=== PATIENT | male | born 1935 | race Caucasian/White ===

== ENCOUNTER → 2017-05-02 | Outpatient (CLI) | payer MEDICARE, OTHER | END | disposition home or self-care (01) | LOC: PCVCCLINIC 10:04 | PROVIDERS: ATTEND Internal Medicine | DX: I10 Essential (primary) hypertension (principal); I35.9 Nonrheumatic aortic valve disorder, unspecified; E78.5 Hyperlipidemia, unspecified; R93.1 Abnormal findings on diagnostic imaging of heart and coronary circulation; Z79.82 Long term (current) use of aspirin; Z79.899 Other long term (current) drug therapy | CPT/HCPCS: 80061; 93005; G0463 ==

== ENCOUNTER → 2018-05-02 | Outpatient (CLI) | payer MEDICARE, OTHER | END | disposition home or self-care (01) | LOC: PCVCCLINIC 13:04 | PROVIDERS: ATTEND Internal Medicine | DX: I25.10 Atherosclerotic heart disease of native coronary artery without angina pectoris (principal); I35.9 Nonrheumatic aortic valve disorder, unspecified; E78.5 Hyperlipidemia, unspecified; I10 Essential (primary) hypertension; E03.9 Hypothyroidism, unspecified; Z79.82 Long term (current) use of aspirin | CPT/HCPCS: 80061; 93005; G0463 ==

== ENCOUNTER → 2019-05-02 | Outpatient (CLI) | payer MEDICARE, OTHER ==
--- NOTE | 2019-05-02 11:34 | PCVCIMAG ---
APPROVED REPORT Study performed: 05/02/2019 10:15:36 EXAM: Comprehensive 2D, Doppler, and color-flow Echocardiogram Patient Location: Echo lab Room #: 2Status: routine BSA: 2.18 HR: 58 bpmBP: 136/66 mmHg Rhythm: Bradycardia Other Information Study Quality: Adequate Risk Factors: Cardiac Risk Factors: HTN, Hyperlipidemia Indications Aortic Valve Disease Murmur CAD Hypertension/HDD 2D Dimensions IVSd: 7.61 (7-11mm)LVOT Diam: 21.30 (18-24mm) LVDd: 52.89 mm PWd: 8.48 (7-11mm)Ascending Ao: 41.57 (22-36mm) LVDs: 33.10 (25-40mm) Left Atrium: 30.35 (27-40mm) Aortic Root: 30.39 mm LV Single Plane 4CH: 49.98 % LV Single Plane 2CH: 49.27 % Biplane EF: 51.6 % Volumes Left Atrial Volume (Systole) Single Plane 4CH: 57.20 mLSingle Plane 2CH: 50.49 mL Biplane LA Volume: 66.00 mLLA ESV Index: 30.00 mL/m2 Aortic Valve AoV Peak Mustapha.: 1.37 m/s AO Peak Gr.: 7.78 mmHgLVOT Max P.08 mmHg LVOT Max V: 0.72 m/s CARY Vmax: 1.88 cm2 AI Vmax: 3.28 m/s AI [place]: 2.09 m/s2 AI PHT: 461.50 ms Mitral Valve E/A Ratio: 0.6 MV Decel. Time: 223.27 ms MV E Max Mustapha.: 0.63 m/s MV A Mustapha.: 1.02 m/s IVRT: 114.19 ms TDI E/Lateral E': 9.00E/Medial E': 12.60 Medial E' Mustapha.: 0.05 m/s Lateral E' Mustapha.: 0.07 m/s Pulmonary Valve PV Peak Mustapha.: 1.09 m/sPV Peak Gr.: 4.72 mmHg Pulmonary Vein P Vein S: 0.60 m/sP Vein A: 0.26 m/s P Vein D: 0.33 m/sP Vein A Dur.: 107.3 msec P Vein S/D Ratio: 1.82 Tricuspid Valve TR Peak Mustapha.: 2.57 m/s TR Peak Gr.: 26.43 mmHg TV Vmax: 0.60 m/sPA Pressure: 33.00 mmHg Left Ventricle The left ventricle is normal size. There is normal LV segmental wall motion. There is normal left ventricular wall thickness. Left ventricular systolic function is low normal. LVEF is 50-55%. Mild diastolic dysfunction is present (impaired relaxation pattern). Right Ventricle The right ventricle is normal size. The right ventricular systolic function is normal. Atria The left atrium size is normal. The right atrium size is normal. Aortic Valve Aortic valve is trileaflet, mildly calcified. Mild aortic regurgitation . There is no aortic valvular stenosis. Mitral Valve The mitral valve is normal in structure. No mitral valve regurgitation noted. No evidence of mitral valve stenosis. Tricuspid Valve The tricuspid valve is normal in structure. Trace to mild tricuspid regurgitation with a PA pressure of 30 mmHg. Pulmonic Valve The pulmonary valve is normal in structure. There is no pulmonic valvular regurgitation. Great Vessels The aortic root is normal in size. 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 Pericardium There is no pericardial effusion. There is no pleural effusion. <Conclusion> Left ventricular systolic function is low normal. There is normal LV segmental wall motion. Mild diastolic dysfunction is present (impaired relaxation pattern). Aortic valve is trileaflet, mildly calcified. Mild aortic regurgitation, no stenosis . The mitral valve is normal in structure. No mitral valve regurgitation Trace to mild tricuspid regurgitation with a pulmonary artery pressure of 30 mmHg. 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
== END | disposition home or self-care (01) ==
LOC: PCVCIMAG 09:37
PROVIDERS: ATTEND Family Medicine
DX: I08.2 Rheumatic disorders of both aortic and tricuspid valves (principal); I25.10 Atherosclerotic heart disease of native coronary artery without angina pectoris; I10 Essential (primary) hypertension; R01.1 Cardiac murmur, unspecified; R93.1 Abnormal findings on diagnostic imaging of heart and coronary circulation; E03.9 Hypothyroidism, unspecified; Z79.82 Long term (current) use of aspirin
CPT/HCPCS: 36415; 80061; 93005; 93306; G0463